=== PATIENT | female | born 1940 | race Caucasian/White ===

== ENCOUNTER → 2022-09-30 11:31 | Outpatient (BNVA) | payer MEDICARE, OTHER, SELFPAY | PROVIDERS: PCP Nurse Practitioner Family; Visit Provider Nurse Practitioner Family | DX: M79.7 Fibromyalgia (principal); M25.50 Pain in unspecified joint; G51.0 Bell's palsy; E03.9 Hypothyroidism, unspecified | CPT/HCPCS: 82550; 84439; 84443; 84481; 85025; 86038; 86140; 86431 ==

== ENCOUNTER → 2022-10-16 15:16 | Outpatient (BNVA) | payer MEDICARE, OTHER, SELFPAY | PROVIDERS: PCP Nurse Practitioner Family; Visit Provider Nurse Practitioner Family | DX: R79.82 Elevated C-reactive protein (CRP) (principal); M25.552 Pain in left hip; G89.29 Other chronic pain; M16.10 Unilateral primary osteoarthritis, unspecified hip | CPT/HCPCS: 86140 ==

== ENCOUNTER 2022-10-18 11:27 | Outpatient (CLI) | payer MEDICARE, OTHER, SELFPAY ==
--- NOTE | 2022-10-18 11:37 | XR_ITS ---
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 SI joints are open. Old subcapital fracture of the left hip stabilized with 3 orthopedic nails. The right hip is unremarkable. XR/XR pelvis 1-2V* [id number] IMPRESSION: 1. No pelvic fracture or other significant finding.
--- NOTE | 2022-10-18 11:37 | XR_ITS ---
WS: [email or web address] Exam: XR hip LT 2-3V wo/w pel* [id number] Date/Time of Exam: 10/18/2022 11:54 AM Reason For Exam: M25.552 - Pain in left hip Healed subcapital fracture of the left hip stabilized with 3 orthopedic nails. No acute fracture. The joint compartment is relatively well maintained. Normal soft tissues. XR/XR hip LT 2-3V wo/w pel* [id number] IMPRESSION: 1. Healed subcapital fracture of the left hip with internal fixation. No other significant finding.
== END 2022-10-18 11:28 | disposition home or self-care (01) ==
LOC: RAD 11:32
PROVIDERS: PCP Nurse Practitioner Family; Visit Provider Nurse Practitioner Family
DX: M16.12 Unilateral primary osteoarthritis, left hip (principal); G89.29 Other chronic pain; M25.552 Pain in left hip
CPT/HCPCS: 72170; 73502

== ENCOUNTER → 2022-12-10 10:20 | Outpatient (BNVA) | payer MEDICARE, OTHER, SELFPAY | PROVIDERS: PCP Nurse Practitioner Family; Visit Provider Nurse Practitioner Family | DX: E03.9 Hypothyroidism, unspecified (principal); M25.50 Pain in unspecified joint | CPT/HCPCS: 84439; 84443; 84481 ==

== ENCOUNTER → 2023-02-05 10:05 | Outpatient (BNVA) | payer MEDICARE, OTHER, SELFPAY | PROVIDERS: PCP Nurse Practitioner Family; Visit Provider Internal Medicine Rheumatology | DX: Z79.899 Other long term (current) drug therapy (principal); M19.90 Unspecified osteoarthritis, unspecified site; M45.6 Ankylosing spondylitis lumbar region; M79.7 Fibromyalgia; Z11.59 Encounter for screening for other viral diseases; Z11.1 Encounter for screening for respiratory tuberculosis; M25.50 Pain in unspecified joint; R79.82 Elevated C-reactive protein (CRP); M51.36 Other intervertebral disc degeneration, lumbar region | CPT/HCPCS: 36415; 73130; 73630; 80076; 82085; 82306; 82550; 82565; 83520; 85025; 85651; 86200; 86480; 86704; 86803; 86812; 87340; 99204 ==

== ENCOUNTER → 2023-04-03 12:37 | Outpatient (BNVA) | payer MEDICARE, OTHER, SELFPAY | PROVIDERS: PCP Nurse Practitioner Family; Visit Provider Internal Medicine Rheumatology | DX: M25.50 Pain in unspecified joint (principal); Z79.899 Other long term (current) drug therapy; M79.7 Fibromyalgia; R79.82 Elevated C-reactive protein (CRP); M51.36 Other intervertebral disc degeneration, lumbar region; M06.041 Rheumatoid arthritis without rheumatoid factor, right hand; M06.042 Rheumatoid arthritis without rheumatoid factor, left hand | CPT/HCPCS: 99214 ==

== ENCOUNTER → 2023-06-02 11:33 | Outpatient (BNVA) | payer MEDICARE, OTHER, SELFPAY | PROVIDERS: PCP Nurse Practitioner Family; Visit Provider Nurse Practitioner Family | DX: M51.36 Other intervertebral disc degeneration, lumbar region (principal); E03.9 Hypothyroidism, unspecified; Z79.899 Other long term (current) drug therapy | CPT/HCPCS: 80053; 80061; 84443 ==

== ENCOUNTER → 2023-07-03 13:25 | Outpatient (BNVA) | payer MEDICARE, OTHER, SELFPAY | PROVIDERS: PCP Nurse Practitioner Family; Visit Provider Internal Medicine Rheumatology | DX: E03.9 Hypothyroidism, unspecified (principal); M06.041 Rheumatoid arthritis without rheumatoid factor, right hand; M06.042 Rheumatoid arthritis without rheumatoid factor, left hand; Z79.899 Other long term (current) drug therapy; R29.898 Other symptoms and signs involving the musculoskeletal system; M79.7 Fibromyalgia; R79.82 Elevated C-reactive protein (CRP); M51.36 Other intervertebral disc degeneration, lumbar region | CPT/HCPCS: 36415; 82085; 82306; 82550; 82565; 84439; 84443; 99214 ==

== ENCOUNTER → 2023-09-17 09:44 | Outpatient (BNVA) | payer MEDICARE, OTHER, SELFPAY | PROVIDERS: PCP Nurse Practitioner Family; Visit Provider Nurse Practitioner Family | DX: E07.9 Disorder of thyroid, unspecified (principal); M79.7 Fibromyalgia; G25.81 Restless legs syndrome | CPT/HCPCS: 82306; 84439; 84443 ==

== ENCOUNTER → 2023-10-02 12:48 | Outpatient (BNVA) | payer MEDICARE, OTHER, SELFPAY | PROVIDERS: PCP Nurse Practitioner Family; Visit Provider Internal Medicine Rheumatology | DX: M06.041 Rheumatoid arthritis without rheumatoid factor, right hand (principal); M06.042 Rheumatoid arthritis without rheumatoid factor, left hand; R79.82 Elevated C-reactive protein (CRP); M79.7 Fibromyalgia; M51.36 Other intervertebral disc degeneration, lumbar region; Z87.891 Personal history of nicotine dependence | CPT/HCPCS: 99214 ==

== ENCOUNTER 2024-02-10 08:58 | Outpatient (CLI) | payer MEDICARE, OTHER, SELFPAY ==
[2024-02-10 09:37] LABS: Basophils % 0.4 %; Eosinophils % 0.6 %; Hematocrit 38.5 % (36-47); Lymphocytes # 1.2 10^3/uL (0.8-4.8); Lymphocytes % 16.7 %; Mean Corpuscular HGB Conc 32.5 g/dL (30-55); Mean Corpuscular Volume 86.1 fl (85-98); Mean Platelet Volume 9.4 fL (7.4-10.4); Monocytes # 0.5 10^3/uL (0.2-0.9); Monocytes % 6.8 %; Neutrophils % 75.1 %; Nucleated Red Blood Cells % 0 %; Platelet Count 216 10^3/cmm (157-399); Red Blood Count 4.47 10^6/uL (3.85-5.65); Red Cell Distribution Width 13.8 % (12.1-15.1); White Blood Count 7.06 10^3/uL (3.29-11.43)
[2024-02-10 09:58] LABS: Alanine Aminotransferase 19 U/L (0-33); Albumin Level 4.2 g/dL (3.5-5.2); Alkaline Phosphatase 62 U/L (35-105); Aspartate Amino Transferase 19 U/L (0-32); C Reactive Protein 7.1 mg/L (0.0-4.9); Globulin 2.8 g/dL (1.3-4.6); Total Bilirubin 0.7 mg/dL (0.15-1.2)
== END 2024-02-10 08:59 | disposition home or self-care (01) ==
LOC: LAB 09:02
PROVIDERS: PCP Nurse Practitioner Family; Visit Provider Internal Medicine Rheumatology
DX: M06.041 Rheumatoid arthritis without rheumatoid factor, right hand (principal); M06.042 Rheumatoid arthritis without rheumatoid factor, left hand
CPT/HCPCS: 36415; 80076; 82565; 85025; 86140

== ENCOUNTER → 2024-02-12 13:11 | Outpatient (BNVA) | payer MEDICARE, OTHER, SELFPAY | PROVIDERS: PCP Nurse Practitioner Family; Visit Provider Internal Medicine Rheumatology | DX: M06.041 Rheumatoid arthritis without rheumatoid factor, right hand (principal); M06.042 Rheumatoid arthritis without rheumatoid factor, left hand; M79.7 Fibromyalgia; R79.82 Elevated C-reactive protein (CRP) | CPT/HCPCS: 99214 ==

== ENCOUNTER → 2024-02-17 11:04 | Outpatient (BNVA) | payer MEDICARE, OTHER, SELFPAY | PROVIDERS: PCP Nurse Practitioner Family; Visit Provider Nurse Practitioner Family | DX: E03.9 Hypothyroidism, unspecified (principal) | CPT/HCPCS: 80061; 84436; 84443 ==

== ENCOUNTER 2024-02-19 14:12 | Outpatient (CLI) | payer MEDICARE, OTHER, SELFPAY ==
--- NOTE | 2024-02-19 14:16 | XRR_ITS ---
PROCEDURE INFORMATION: Exam: XR Chest Exam date and time: 02/19/2024 2:23 PM Age: 83 years old Clinical indication: Dyspnea; Patient HX: Heavy breathing on exertion for past couple months; Additional info: R06.00 - dyspnea, unspecified TECHNIQUE: Imaging protocol: Radiologic exam of the chest. Views: 2 views. COMPARISON: No relevant prior studies available. FINDINGS: Lungs: Unremarkable. No consolidation. Pleural spaces: Unremarkable. No pleural effusion. No pneumothorax. Heart/Mediastinum: Unremarkable. No cardiomegaly. Bones/joints: Unremarkable. XR/XR chest 2V* [id number] IMPRESSION: No acute findings.
== END 2024-02-19 14:13 | disposition home or self-care (01) ==
LOC: RAD 14:14
PROVIDERS: PCP Nurse Practitioner Family; Visit Provider Nurse Practitioner Family
DX: R06.00 Dyspnea, unspecified (principal)
CPT/HCPCS: 71046

== ENCOUNTER → 2024-04-08 09:39 | Outpatient (BNVA) | payer MEDICARE, OTHER, SELFPAY | PROVIDERS: PCP Nurse Practitioner Family; Visit Provider Nurse Practitioner Family | DX: I10 Essential (primary) hypertension (principal); R60.9 Edema, unspecified; R53.83 Other fatigue | CPT/HCPCS: 80053; 83880; 84443; 85025 ==

== ENCOUNTER 2024-04-23 13:23 | Outpatient (CLI) | payer MEDICARE, OTHER, SELFPAY ==
--- NOTE | 2024-04-23 13:45 | USCV_ITS ---
Laura Balbina Age: 84 Gender: F : 1940 Exam Date: 04/23/2024 13:59 Ordering Phys: Lashawn Hassan-C BUILDING MANAGER Technologist: CT Exam Location: [facility] [place] Indication: Risk Factors: Previous Vascular Surgery: RIGHT LEFT BP: 137.0 / 71.00 BP: 141.0/ 79.00 0 0 Waveform Velocity (cm/s) Velocity (cm/s) Waveform Iliac Prox 96.2 Biphasic Iliac Mid 106.5 Biphasic Iliac Distal 107.2 Biphasic PALLIATIVE CARE PHYSICIAN 95.0 Biphasic SFA Prox 96.0 Biphasic SFA Mid 123.0 Biphasic SFA Dist 86.0 Biphasic POP 86.0 Biphasic COLLEGE PROFESSOR 116.0 Biphasic DPA 81.0 Biphasic IRMA 1.1 FINDINGS Resting IRMA was 1.1 on the left side. Intimal thickening with minimal mild diffuse plaque in the iliac, femoral and popliteal arteries CONCLUSIONS 1. Normal resting IRMA, suggesting no significant arterial obstruction. 2. Intimal thickening with mild diffuse plaque in the left lower extremity arteries Dr Concepción Hill MD FAC (Electronically Signed) Final Date: 23 April 2024 20:51 S
== END 2024-04-23 13:24 | disposition home or self-care (01) ==
LOC: RAD 13:23
PROVIDERS: PCP Nurse Practitioner Family; Visit Provider Nurse Practitioner Family
DX: I70.202 Unspecified atherosclerosis of native arteries of extremities, left leg (principal)
CPT/HCPCS: 93926

== ENCOUNTER → 2024-04-28 10:33 | Outpatient (BNVA) | payer MEDICARE, OTHER, SELFPAY | PROVIDERS: PCP Nurse Practitioner Family; Visit Provider Nurse Practitioner Family | DX: N39.0 Urinary tract infection, site not specified (principal); M79.673 Pain in unspecified foot | CPT/HCPCS: 81000; 84550; 87077; 87086; 87184 ==

== ENCOUNTER 2024-05-21 14:44 | Outpatient (CLI) | payer MEDICARE, OTHER, SELFPAY ==
[2024-05-21 15:15] LABS: Basophils % 0.5 %; Eosinophils # 0.1 10^3/uL (0.0-0.8); Eosinophils % 1.6 %; Hematocrit 39.3 % (36-47); Lymphocytes # 1.1 10^3/uL (0.8-4.8); Lymphocytes % 25.3 %; Mean Corpuscular HGB Conc 32.1 g/dL (30-55); Mean Corpuscular Hemoglobin 27.5 pg (27-33); Mean Corpuscular Volume 85.8 fl (85-98); Mean Platelet Volume 10.2 fL (7.4-10.4); Monocytes # 0.4 10^3/uL (0.2-0.9); Monocytes % 8.1 %; Neutrophils # 2.83 10^3/uL (1.8-7.7); Nucleated Red Blood Cells % 0 %; Platelet Count 174 10^3/cmm (157-399); Red Blood Count 4.58 10^6/uL (3.85-5.65); Red Cell Distribution Width 12.6 % (12.1-15.1); White Blood Count 4.42 10^3/uL (3.29-11.43)
[2024-05-21 15:32] LABS: Alanine Aminotransferase 20 U/L (0-33); Albumin Level 4.1 g/dL (3.5-5.2); Alkaline Phosphatase 80 U/L (35-105); Aspartate Amino Transferase 27 U/L (0-32); C Reactive Protein 4.6 mg/L (0.0-4.9); Globulin 2.9 g/dL (1.3-4.6); Total Bilirubin 0.5 mg/dL (0.15-1.2)
[2024-05-21 15:42] LABS: Erythrocyte Sedimentation Rate 5 mm/hr (0-15)
== END 2024-05-21 14:45 | disposition home or self-care (01) ==
LOC: LAB 14:45
PROVIDERS: PCP Nurse Practitioner Family; Visit Provider Internal Medicine Rheumatology
DX: M06.041 Rheumatoid arthritis without rheumatoid factor, right hand (principal); M06.042 Rheumatoid arthritis without rheumatoid factor, left hand
CPT/HCPCS: 36415; 80076; 82565; 85025; 85651; 86140

== ENCOUNTER → 2024-06-24 14:40 | Outpatient (BNVA) | payer MEDICARE, OTHER, SELFPAY | PROVIDERS: PCP Nurse Practitioner Family; Visit Provider Internal Medicine Rheumatology | DX: M79.7 Fibromyalgia (principal); R79.82 Elevated C-reactive protein (CRP); M06.041 Rheumatoid arthritis without rheumatoid factor, right hand; M06.042 Rheumatoid arthritis without rheumatoid factor, left hand; Z79.899 Other long term (current) drug therapy; M51.369 Other intervertebral disc degeneration, lumbar region without mention of lumbar back pain or lower extremity pain | CPT/HCPCS: 99214 ==

== ENCOUNTER → 2024-08-09 09:46 | Outpatient (BNVA) | payer MEDICARE, OTHER, SELFPAY | PROVIDERS: PCP Nurse Practitioner Family; Visit Provider Nurse Practitioner Family | DX: E03.9 Hypothyroidism, unspecified (principal); R06.00 Dyspnea, unspecified; R53.83 Other fatigue | CPT/HCPCS: 83880; 84443; 85025 ==

== ENCOUNTER 2024-08-12 12:39 | Outpatient (CLI) | payer MEDICARE, OTHER, SELFPAY ==
--- NOTE | 2024-08-12 12:45 | XR_ITS ---
WS: [email or web address] Exam: XR shoulder RT min 2V* [id number] Date/Time of Exam: 08/12/2024 12:59 PM Reason For Exam: M25.511 - Pain in right shoulder No fracture. Mild degenerative change of the glenohumeral joint and the AC joint. Small soft tissue calcification along the humeral head might indicate calcific tendinitis or bursitis. XR/XR shoulder RT min 2V* [id number] IMPRESSION: 1. Mild degenerative changes. Possible calcific tendinitis and/or bursitis.
== END 2024-08-12 12:40 | disposition home or self-care (01) ==
PROVIDERS: PCP Nurse Practitioner Family; Visit Provider Nurse Practitioner Family
DX: M19.011 Primary osteoarthritis, right shoulder (principal); M79.9 Soft tissue disorder, unspecified
CPT/HCPCS: 73030

== ENCOUNTER → 2024-08-18 08:29 | Outpatient (BNVA) | payer MEDICARE, OTHER, SELFPAY | PROVIDERS: PCP Nurse Practitioner Family; Visit Provider Nurse Practitioner Family | DX: M19.011 Primary osteoarthritis, right shoulder (principal); D72.819 Decreased white blood cell count, unspecified; D72.810 Lymphocytopenia | CPT/HCPCS: 85025 ==

== ENCOUNTER → 2024-08-23 08:43 | Outpatient (BNVA) | payer MEDICARE, OTHER, SELFPAY | PROVIDERS: PCP Nurse Practitioner Family; Visit Provider Orthopaedic Surgery | DX: M19.011 Primary osteoarthritis, right shoulder (principal); M25.511 Pain in right shoulder; G89.29 Other chronic pain | CPT/HCPCS: 20610; 99204; J3301; J3490; J9999 ==

== ENCOUNTER 2024-09-22 14:34 | Oncology outpatient (recurring) (ONCR) | payer MEDICARE, OTHER, SELFPAY ==
[2024-09-22 15:52] LABS: Basophils % 0.5 %; Eosinophils % 0.5 %; Hematocrit 36.3 % (36-47); Lymphocytes # 1.1 10^3/uL (0.8-4.8); Lymphocytes % 18.4 %; Mean Corpuscular HGB Conc 32.5 g/dL (30-55); Mean Corpuscular Hemoglobin 27.9 pg (27-33); Mean Corpuscular Volume 85.8 fl (85-98); Mean Platelet Volume 9.9 fL (7.4-10.4); Monocytes # 0.4 10^3/uL (0.2-0.9); Monocytes % 6.2 %; Neutrophils # 4.42 10^3/uL (1.8-7.7); Neutrophils % 73.9 %; Nucleated Red Blood Cells % 0 %; Platelet Count 198 10^3/cmm (157-399); Red Blood Count 4.23 10^6/uL (3.85-5.65); Red Cell Distribution Width 14.4 % (12.1-15.1); White Blood Count 5.98 10^3/uL (3.29-11.43)
[2024-09-22 15:59] LABS: Erythrocyte Sedimentation Rate 27 mm/hr (0-15)
[2024-09-22 16:11] LABS: Alanine Aminotransferase 17 U/L (0-33); Albumin Level 4.1 g/dL (3.5-5.2); Alkaline Phosphatase 83 U/L (35-105); Anion Gap 17.6 (5-19); Aspartate Amino Transferase 27 U/L (0-32); Blood Urea Nitrogen 27 mg/dL (8-23); Calcium 9.3 mg/dL (8.5-10.5); Carbon Dioxide 21 mmol/L (22-29); Chloride 103 mmol/L (98-107); Globulin 3.1 g/dL (1.3-4.6); Glucose 99 mg/dL (65-115); Osmolality Calculated 289 mOsm/kg (285-295); Potassium 4.6 mmol/L (3.5-5.1); Sodium 137 mmol/L (136-145); Total Bilirubin 0.6 mg/dL (0.15-1.2); Total Protein 7.2 g/dL (6.6-8.7)
[2024-09-22 16:12] LABS: Alanine Aminotransferase 19 U/L (0-33); Alkaline Phosphatase 76 U/L (35-105); Aspartate Amino Transferase 19 U/L (0-32); C Reactive Protein 4.2 mg/L (0.0-4.9); Globulin 2.9 g/dL (1.3-4.6); Lactate Dehydrogenase 232 U/L (135-214); Total Bilirubin 0.6 mg/dL (0.15-1.2); Total Protein 6.9 g/dL (6.6-8.7)
[2024-09-23 21:45] LABS: Beta-2-Microglobulin 4.45 mg/L (< OR = 2.51)
== END 2024-10-18 23:59 | disposition home or self-care (01) ==
PROVIDERS: Internal Medicine Rheumatology; PCP Nurse Practitioner Family; Visit Provider Internal Medicine
DX: D72.810 Lymphocytopenia (principal); D72.829 Elevated white blood cell count, unspecified; M06.041 Rheumatoid arthritis without rheumatoid factor, right hand; M06.042 Rheumatoid arthritis without rheumatoid factor, left hand; Z79.899 Other long term (current) drug therapy
CPT/HCPCS: 36415; 80053; 80076; 82232; 82565; 83615; 85025; 85651; 86140; 99204

== ENCOUNTER → 2024-09-28 14:06 | Outpatient (BNVA) | payer MEDICARE, OTHER, SELFPAY | PROVIDERS: PCP Nurse Practitioner Family; Visit Provider Nurse Practitioner Family | DX: E03.9 Hypothyroidism, unspecified (principal) | CPT/HCPCS: 84443 ==

== ENCOUNTER 2024-11-09 11:04 | Outpatient (CLI) | payer MEDICARE, OTHER, SELFPAY ==
[2024-11-09 12:22] LABS: Hematocrit 35.6 % (36-47); Hemoglobin 11.70 g/dL (11.27-16.99); Mean Corpuscular HGB Conc 32.9 g/dL (30-55); Mean Corpuscular Hemoglobin 29.4 pg (27-33); Mean Corpuscular Volume 89.4 fl (85-98); Nucleated Red Blood Cells % 0 %; Platelet Count 205 10^3/cmm (157-399); Red Blood Count 3.98 10^6/uL (3.85-5.65); White Blood Count 4.47 10^3/uL (3.29-11.43)
== END 2024-11-09 11:05 | disposition home or self-care (01) ==
LOC: LAB 11:08
PROVIDERS: PCP Nurse Practitioner Family; Visit Provider Internal Medicine Rheumatology
DX: M06.041 Rheumatoid arthritis without rheumatoid factor, right hand (principal); M06.042 Rheumatoid arthritis without rheumatoid factor, left hand; Z79.899 Other long term (current) drug therapy
CPT/HCPCS: 36415; 85025

== ENCOUNTER → 2024-12-23 13:55 | Outpatient (BNVA) | payer MEDICARE, OTHER, SELFPAY | PROVIDERS: PCP Nurse Practitioner Family; Visit Provider Internal Medicine Rheumatology | DX: M79.7 Fibromyalgia (principal); R79.82 Elevated C-reactive protein (CRP); M51.369 Other intervertebral disc degeneration, lumbar region without mention of lumbar back pain or lower extremity pain; M06.041 Rheumatoid arthritis without rheumatoid factor, right hand; M06.042 Rheumatoid arthritis without rheumatoid factor, left hand | CPT/HCPCS: 99214 ==

== ENCOUNTER 2025-04-01 14:03 | Outpatient (CLI) | payer MEDICARE, OTHER, SELFPAY ==
--- NOTE | 2025-04-01 14:15 | XR_ITS ---
WS: [email or web address] XR hip LT 2-3V wo/w pel* [id number] REASON FOR EXAM: M25.552 - Pain in left hip FINDINGS: 3 large femoral neck nails. Healed subcapital fracture. Joint spaces intact and well preserved with no significant change compared to 10/18/2022. Mild osteophytosis of the femoral head unchanged compared to the previous examination. XR/XR hip LT 2-3V wo/w pel* [id number] IMPRESSION: Healed subcapital fracture with internal fixation. Minimal osteoarthritis uncha nged.
--- NOTE | 2025-04-01 14:27 | XR_ITS ---
WS: [email or web address] XR lumbar spine 2-3V* [id number] REASON FOR EXAM: M54.50 - Low back pain, unspecified FINDINGS: Moderate rotatory dextroscoliosis. Relatively normal lordosis. No focal lesion of the lumbar vertebrae. Chronic mild biconcave compression deformities of the L1-L3. Severe narrowing of the L4-L5 and L5-S1 spaces with degenerative intradiscal gas and moderate endplate sclerosis and mild osteophytosis. Moderate degenerative arthropathy in the facet joints L3-S1. No spondylolysis. No significant neutral listhesis. XR/XR lumbar spine 2-3V* [id number] IMPRESSION: Significant degenerative spondylosis.
== END 2025-04-01 14:04 | disposition home or self-care (01) ==
PROVIDERS: PCP Nurse Practitioner Family; Visit Provider Nurse Practitioner Family
DX: M41.9 Scoliosis, unspecified (principal); M43.8X6 Other specified deforming dorsopathies, lumbar region; M25.78 Osteophyte, vertebrae; M47.816 Spondylosis without myelopathy or radiculopathy, lumbar region; M16.12 Unilateral primary osteoarthritis, left hip
CPT/HCPCS: 72100; 73502